=== PATIENT | female | born 1945 ===

== ENCOUNTER 2018-09-28 16:25 | Emergency (ER) | payer MEDICARE ==
--- NOTE | 2018-09-28 16:29 | ER Report ---
History and Physical Time Seen By MD: 16:27 (SANTO BRIONES DO) HPI/ROS CHIEF COMPLAINT: Hypertension, headache HISTORY OF PRESENT ILLNESS: Patient is a 73-year-old female here with complaints of hypertension, headache. Patient was sent from urgent care for further evaluation. Patient reportedly is under a lot of stress and was previously evaluated at [place] at which time she had a blood pressure of 220 systolic prompting her to start taking lisinopril. Patient reportedly had an adverse reaction to lisinopril with significant coughing and shortness of breath prompting her to stop. Patient was found to be 199/82. Denies chest pain, shortness breath, fevers, chills, recent infection, decreased urine output, nausea, vomiting, visual disturbances. REVIEW OF SYSTEMS: Constitutional: No fever, no chills. Eyes: No discharge. No visual changes ENT: No sore throat. Cardiovascular: No chest pain, no palpitations. Respiratory: No cough, no shortness of breath. Gastrointestinal: No abdominal pain, no vomiting. Genitourinary: No hematuria. Musculoskeletal: No back pain. Skin: No rashes. Neurological: + mild headache, no focal neurological deficits (SANTO BRIONES DO) Allergies: Coded Allergies: Penicillins (Verified Allergy, Unknown, 09/28/18) azithromycin (Verified Allergy, Unknown, 09/28/18) codeine (Verified Allergy, Unknown, 09/28/18) Home Meds Active Scripts Amlodipine Besylate (AMLODIPINE BESYLATE) 5 Mg Tablet, 1 TAB PO QDAY, #30 TAB Prov:SANTO BRIONES DO 09/28/18 Reported Medications Aspirin (ASPIRIN) 81 Mg Tab.chew, 81 MG PO QDAY, TAB.CHEW 09/28/18 Constitutional Vital Sign - Last 24 Hours 09/28/18 16:31 Temp 97.7 Pulse 75 Resp 20 Pulse Ox 90 O2 Delivery Room Air (ELVER GUDINO MD) Physical Exam General Appearance: The patient is alert, has no immediate need for airway protection and no signs of toxicity. No acute distress Eyes: Pupils equal and round no pallor or injection. ENT, Mouth: Mucous membranes are moist. Respiratory: There are no retractions, lungs are clear to auscultation. Cardiovascular: Regular rate and rhythm. Gastrointestinal: Abdomen is soft and non tender, no masses, bowel sounds normal. Neurological: No focal neurological deficits, alert and oriented, no visual changes per patient report Skin: Warm and dry, no rashes. Musculoskeletal: Neck is supple non tender. Extremities are nontender, nonswollen and have full range of motion. DIFFERENTIAL DIAGNOSIS: After history and physical exam differential diagnosis was considered for benign hypertension, hypertensive urgency, hypertensive emergency, anxiety (ANSELMO,SANTO S DO) Medical Decision Making Data Points Result Diagram: 09/28/18 1727 09/28/18 1727 Laboratory Hematology Test 09/28/18 17:13 09/28/18 17:27 Urine Color Straw Urine Clarity Clear Urine pH 7.0 pH (4.8-9.5) Urine Specific [place] 1.003 Urine Protein Negative mg/dL (NEGATIVE) Urine Glucose (UA) Negative mg/dL (NEGATIVE) Urine Ketones Negative mg/dL (NEGATIVE) Urine Blood Negative (NEGATIVE) Urine Nitrite Negative (NEGATIVE) Urine Bilirubin Negative (NEGATIVE) Urine Urobilinogen Negative mg/dL (0.2-1.9) Urine Leukocyte Esterase Small (NEGATIVE) Urine RBC <1 /HPF (0-2/HPF) Urine WBC 2 /HPF (0-5/HPF) Urine Squamous Epithelial Cells None /LPF (</=FEW) Urine Bacteria Negative /HPF (NONE-FEW) Urine Mucus None /HPF (NONE-FEW) Red Blood Count 4.66 M/uL (4.17-5.56) Mean Corpuscular Volume 88.9 fL (80.0-96.0) Mean Corpuscular Hemoglobin 30.0 pg (26.0-33.0) Mean Corpuscular Hemoglobin Concent 33.7 g/dL (32.0-36.0) Red Cell Distribution Width 13.3 % (11.5-14.5) Mean Platelet Volume 8.6 fL (7.2-11.1) Neutrophils (%) (Auto) 57.4 % (39.4-72.5) Lymphocytes (%) (Auto) 30.9 % (17.6-49.6) Monocytes (%) (Auto) 8.8 % (4.1-12.4) Eosinophils (%) (Auto) 2.0 % (0.4-6.7) Basophils (%) (Auto) 0.9 % (0.3-1.4) Nucleated RBC Relative Count (auto) 0.1 /100WBC Neutrophils # (Auto) 2.4 K/uL (2.0-7.4) Lymphocytes # (Auto) 1.3 K/uL (1.3-3.6) Monocytes # (Auto) 0.4 K/uL (0.3-1.0) Eosinophils # (Auto) 0.1 K/uL (0.0-0.5) Basophils # (Auto) 0.0 K/uL (0.0-0.1) Nucleated RBC Absolute Count (auto) 0.01 K/uL Sodium Level 136 mmol/L (137-145) Potassium Level 4.0 mmol/L (3.5-5.0) Chloride Level 99 mmol/L (98-107) Carbon Dioxide Level 28 mmol/L (22-31) Blood Urea Nitrogen 15 mg/dl (7-18) Creatinine 0.90 mg/dl (0.52-1.04) Glomerular Filtration Rate Calc > 60.0 Random Glucose 92 mg/dl (75-110) Calcium Level 9.3 mg/dl (8.4-10.2) Total Bilirubin 0.5 mg/dl (0.2-1.3) Aspartate Amino Transf (AST/SGOT) 36 U/L (0-35) Alanine Aminotransferase (ALT/SGPT) 37 U/L (0-56) Alkaline Phosphatase 75 U/L (0-126) Troponin I < 0.012 ng/ml Total Protein 7.1 g/dl (6.3-8.2) Albumin 4.1 g/dl (3.5-5.0) Chemistry Test 09/28/18 17:13 09/28/18 17:27 Urine Color Straw Urine Clarity Clear Urine pH 7.0 pH (4.8-9.5) Urine Specific [place] 1.003 Urine Protein Negative mg/dL (NEGATIVE) Urine Glucose (UA) Negative mg/dL (NEGATIVE) Urine Ketones Negative mg/dL (NEGATIVE) Urine Blood Negative (NEGATIVE) Urine Nitrite Negative (NEGATIVE) Urine Bilirubin Negative (NEGATIVE) Urine Urobilinogen Negative mg/dL (0.2-1.9) Urine Leukocyte Esterase Small (NEGATIVE) Urine RBC <1 /HPF (0-2/HPF) Urine WBC 2 /HPF (0-5/HPF) Urine Squamous Epithelial Cells None /LPF (</=FEW) Urine Bacteria Negative /HPF (NONE-FEW) Urine Mucus None /HPF (NONE-FEW) White Blood Count 4.2 k/uL (4.5-11.0) Red Blood Count 4.66 M/uL (4.17-5.56) Hemoglobin 14.0 g/dL (12.0-16.0) Hematocrit 41.5 % (34.0-47.0) Mean Corpuscular Volume 88.9 fL (80.0-96.0) Mean Corpuscular Hemoglobin 30.0 pg (26.0-33.0) Mean Corpuscular Hemoglobin Concent 33.7 g/dL (32.0-36.0) Red Cell Distribution Width 13.3 % (11.5-14.5) Platelet Count 199 K/uL (150-450) Mean Platelet Volume 8.6 fL (7.2-11.1) Neutrophils (%) (Auto) 57.4 % (39.4-72.5) Lymphocytes (%) (Auto) 30.9 % (17.6-49.6) Monocytes (%) (Auto) 8.8 % (4.1-12.4) Eosinophils (%) (Auto) 2.0 % (0.4-6.7) Basophils (%) (Auto) 0.9 % (0.3-1.4) Nucleated RBC Relative Count (auto) 0.1 /100WBC Neutrophils # (Auto) 2.4 K/uL (2.0-7.4) Lymphocytes # (Auto) 1.3 K/uL (1.3-3.6) Monocytes # (Auto) 0.4 K/uL (0.3-1.0) Eosinophils # (Auto) 0.1 K/uL (0.0-0.5) Basophils # (Auto) 0.0 K/uL (0.0-0.1) Nucleated RBC Absolute Count (auto) 0.01 K/uL Glomerular Filtration Rate Calc > 60.0 Calcium Level 9.3 mg/dl (8.4-10.2) Total Bilirubin 0.5 mg/dl (0.2-1.3) Aspartate Amino Transf (AST/SGOT) 36 U/L (0-35) Alanine Aminotransferase (ALT/SGPT) 37 U/L (0-56) Alkaline Phosphatase 75 U/L (0-126) Troponin I < 0.012 ng/ml Total Protein 7.1 g/dl (6.3-8.2) Albumin 4.1 g/dl (3.5-5.0) Urinalysis Test 09/28/18 17:13 Urine Color Straw Urine Clarity Clear Urine pH 7.0 pH (4.8-9.5) Urine Specific [place] 1.003 Urine Protein Negative mg/dL (NEGATIVE) Urine Glucose (UA) Negative mg/dL (NEGATIVE) Urine Ketones Negative mg/dL (NEGATIVE) Urine Blood Negative (NEGATIVE) Urine Nitrite Negative (NEGATIVE) Urine Bilirubin Negative (NEGATIVE) Urine Urobilinogen Negative mg/dL (0.2-1.9) Urine Leukocyte Esterase Small (NEGATIVE) Urine RBC <1 /HPF (0-2/HPF) Urine WBC 2 /HPF (0-5/HPF) Urine Squamous Epithelial Cells None /LPF (</=FEW) Urine Bacteria Negative /HPF (NONE-FEW) Urine Mucus None /HPF (NONE-FEW) (ELVER GUDINO MD) ED Course/Re-evaluation ED Course Patient is a 73-year-old female here with complaints of hypertension sent from urgent care initially with blood pressure 199/82. Patient had previously been treated with lisinopril but had an adverse reaction prompting her to stop. Patient was not restarted on any antihypertensives. Patient does report going through significant life stressors at the moment. Labs are unremarkable, electrolytes and CBC were stable. Troponin was negative. Patient was administered amlodipine 5 mg, Ativan 1 mg. patient was given labetalol 20 mg with significant improvement. Patient was signed out to Dr. Gudino at shift change Decision to Disposition Date: Sep 28, 2018 Decision to Disposition Time: 18:00 (SANTO BRIONES DO) ED Course 09/28/2018 6:25:16 pm patient received 20 mg of IV labetalol current blood pressure is 140/75 patient is symptom-free at this time we'll provide her with contact information for primary care provider and a prescription for to start amlodipine Decision to Disposition Date: Sep 28, 2018 Decision to Disposition Time: 18:25 (ELVER GUDINO MD) Depart Departure Latest Vital Signs Vital Signs Date Time Temp Pulse Resp B/P (MAP) Pulse Ox O2 Delivery O2 Flow Rate FiO2 09/28/18 16:31 97.7 75 20 90 Room Air (ELVER GUDINO MD) Impression: Primary Impression: Hypertension Condition: Improved Disposition: HOME OR SELF-CARE Referrals: JEANETTE ALANIS DO Call to make a follow-up appointment in the next 2-4 weeks to establish primary care physician New Scripts Amlodipine Besylate (AMLODIPINE BESYLATE) 5 Mg Tablet 1 TAB PO QDAY, #30 TAB Prov: SANTO BRIONES DO 09/28/18 Patient Instructions: Hypertension (ED) Additional Instructions: Please take one tablet or 5 mg of amlodipine daily until you're able to follow- up with your primary care provider. Please return promptly if you develop headache, blurry vision, chest pain, shortness breath, decreased urine output, abdominal pain, nausea, vomiting. Problem Qualifiers Primary Impression: Hypertension Hypertension type: essential hypertension Qualified Codes: I10 - Essential (primary) hypertension SANTO BRIONES DO Sep 28, 2018 16:29 ELVER GUDINO MD Sep 28, 2018 18:28
[2018-09-28] MEDS ORDERED: LORazepam 1 MG TAB PO ONE (16:45)
[2018-09-28] MEDS ORDERED: amLODIPine BESYL(*) 5 MG TAB PO ONE (16:45)
[2018-09-28] MEDS ORDERED: ASPI81TA94 PO (16:57)
[2018-09-28] MEDS ORDERED: LABETALOL HCL 100 MG/20ML VIAL IVP ONE (18:05)
[2018-09-28 18:08] LABS: PLATELET COUNT, AUTOMATED 199 K/uL (150-450)
[2018-09-28] MEDS ORDERED: AMLO-125 PO (18:17)
[2018-09-28 18:30] VITALS: BP 153/72
== END 2018-09-28 18:39 | disposition home or self-care (01) ==
LOC: ER 16:33
DX: I10 Essential (primary) hypertension (principal)
CPT/HCPCS: 36415; 81001; 84484; 85025; 96374; 99283; A9270; 82040; 82247; 82310; 82374; 82435; 82565; 82947; 84075; 84132; 84155; 84295; 84450; 84460; 84520